=== PATIENT | female | born 1950 | race African-American/Black ===

== ENCOUNTER 2018-12-18 14:36 | Inpatient (IN) | payer MEDICAID ==
[~2018-12-18] VITALS: Ht 157.5 cm; Wt 54.9 kg
[2018-12-18] MEDS ORDERED: SODIUM CHLORIDE 0.9% 1000ML BAG (SEPSIS BOLUS) IV ONE (15:00)
[2018-12-18 15:50] LABS: BASOPHILS % 0.7 % (0.0-2.0); EOSINOPHILS % 0.6 % (0.0-5.0); HEMATOCRIT. 35.5 % (36.0-48.0); HEMOGLOBIN. 11.5 g/dL (12.0-16.0); LYMPHOCYTES % 13.4 % (20.0-50.0); MEAN CORPUSCULAR HEMOGLOBIN 25.7 pg (28.0-32.0); MEAN CORPUSCULAR VOLUME 79.4 fL (81.0-99.0); MEAN PLATELET VOLUME 7.7 fl (7.4-10.4); MONOCYTES % 6.6 % (2.0-8.0); NEUTROPHILS % 78.7 % (40.0-76.0); PLATELET 286 x1000/uL (130-400); RED BLOOD CELL COUNT 4.47 mill/uL (4.2-5.4); RED CELL DISTRIBUTION WIDTH 15.1 % (11.6-14.6)
[2018-12-18 15:57] LABS: CHLORIDE 108 mEq/L (98-107)
[2018-12-18 16:02] LABS: ETHANOL BLOOD < 10 mg/dL
[2018-12-18] MEDS ORDERED: LEVOFLOXACIN 750MG PREMIX 150 ML IV ONE (16:45)
[2018-12-18] MEDS ORDERED: ASPIRIN 81MG TABLET PO ONE (17:00)
[2018-12-18 17:18] LABS: CLARITY URINE CLEAR (CLEAR); COLOR URINE YELLOW (YELLOW); KETONES URINE NEGATIVE (NEGATIVE); LEUKOCYTE ESTERASE URINE NEGATIVE (NEGATIVE); NITRITE URINE NEGATIVE (NEGATIVE); OCCULT BLOOD URINE NEGATIVE (NEGATIVE); PH URINE 5.5 (4.5-8.0); PROTEIN URINE NEGATIVE (NEGATIVE); UROBILINOGEN URINE 0.2 E.U./dL (0.2-1.0)
[2018-12-18 17:29] LABS: *AMPHETAMINES SCREEN URINE NEGATIVE (NEGATIVE); *BARBITURATES SCREEN URINE NEGATIVE (NEGATIVE); *BENZODIAZEPINES SCREEN URINE NEGATIVE (NEGATIVE); *COCAINE SCREEN URINE NEGATIVE (NEGATIVE); METHADONE URINE SCREEN NEGATIVE (NEGATIVE); OPIATES URINE SCREEN NEGATIVE (NEGATIVE)
[2018-12-18 17:30] LABS: CANNABINOID URINE SCREEN NEGATIVE (NEGATIVE); PHENCYCLIDINE URINE SCREEN NEGATIVE (NEGATIVE)
[2018-12-18] MEDS ORDERED: MAGNESIUM/ALUMINUM HYDROXIDE/SIMETHICONE 30ML UDC PO PRN (19:45)
[2018-12-18] MEDS ORDERED: CLONIDINE 0.1MG TABLET PO PRN (19:45)
[2018-12-18] MEDS ORDERED: DIPHENHYDRAMINE 50MG/ML VIAL IV PRN (19:45)
[2018-12-18] MEDS ORDERED: IPRATROPIUM/ALBUTEROL 0.5-3(2.5)MG/3ML NEB INH PRN (19:45)
[2018-12-18] MEDS ORDERED: ACETAMINOPHEN 325MG TABLET PO PRN (19:45)
[2018-12-18] MEDS ORDERED: GUAIFENESIN 200MG/10ML SUGAR FREE UDC PO PRN (19:45)
[2018-12-18] MEDS ORDERED: HYDRALAZINE 20MG/ML VIAL IV PRN (19:45)
[2018-12-18] MEDS ORDERED: DOCUSATE SODIUM 100MG CAPSULE PO PRN (19:45)
[2018-12-18] MEDS ORDERED: ONDANSETRON HCL 4MG/2ML INJ IV PRN (19:45)
[2018-12-18] MEDS ORDERED: LORAZEPAM 2MG/ML CPJ IV PRN (19:45)
[2018-12-18] MEDS ORDERED: HYDROCODONE/ACETAMINOPHEN 10/325MG TABLET PO PRN (20:30)
[2018-12-18 20:35] VITALS: BP 117/83
[2018-12-18] MEDS ORDERED: ENOXAPARIN 30MG/0.3ML SYR SUBCUT SCH (20:45)
[2018-12-18] MEDS ORDERED: NA PHOS,M-B/NA PHOS,DI-BA ENEMA 118ML PR PRN (21:00)
[2018-12-18] MEDS ORDERED: HYDROMORPHONE HCL/PF 2MG/ML CPJ IV PRN (21:00)
[2018-12-18] MEDS: SODIUM CHLORIDE 0.45% 1,000 ML IV SCH (23:16)
[2018-12-18] MEDS: SODIUM CHLORIDE 0.9% INJ 3ML FLUSH IVF SCH (23:17)
[2018-12-19] VITALS: BP 105/61
[2018-12-19] MEDS ORDERED: ASPI-1079 PO (00:07)
[2018-12-19 00:31] LABS: CREATINE KINASE 62 IU/L (26-192)
[2018-12-19 00:32] LABS: CREATINE KINASE MB FRACTION < 1.0 ng/mL (0.5-3.6)
[2018-12-19 04:00] VITALS: BP 135/78
[2018-12-19 07:12] LABS: BASOPHILS % 0.6 % (0.0-2.0); EOSINOPHILS % 1.9 % (0.0-5.0); HEMATOCRIT. 32.4 % (36.0-48.0); HEMOGLOBIN. 10.6 g/dL (12.0-16.0); LYMPHOCYTES % 24.1 % (20.0-50.0); MEAN CORPUSCULAR HEMOGLOBIN 25.7 pg (28.0-32.0); MEAN CORPUSCULAR VOLUME 78.4 fL (81.0-99.0); MEAN PLATELET VOLUME 7.5 fl (7.4-10.4); MONOCYTES % 10.1 % (2.0-8.0); NEUTROPHILS % 63.3 % (40.0-76.0); PLATELET 298 x1000/uL (130-400); RED BLOOD CELL COUNT 4.14 mill/uL (4.2-5.4); RED CELL DISTRIBUTION WIDTH 15.1 % (11.6-14.6)
[2018-12-19 07:49] LABS: CHLORIDE 111 mEq/L (98-107)
[2018-12-19 08:00] VITALS: BP 117/76
[2018-12-19 08:00] LABS: CREATINE KINASE MB FRACTION < 1.0 ng/mL (0.5-3.6)
[2018-12-19 08:01] LABS: LDL CHOLESTEROL 68 mg/dL (5-100)
[2018-12-19 08:02] LABS: CREATINE KINASE 54 IU/L (26-192); HDL CHOLESTEROL 83 mg/dL (40-59)
[2018-12-19] MEDS: ASPIRIN 81MG EC TABLET PO SCH (08:15)
[2018-12-19] MEDS: SODIUM CHLORIDE 0.9% INJ 3ML FLUSH IVF SCH ×3 (08:15→21:34)
[2018-12-19 12:00] VITALS: BP 110/71
[2018-12-19] MEDS: SODIUM CHLORIDE 0.45% 1,000 ML IV SCH (13:20)
[2018-12-19 16:00] VITALS: BP 123/67
[2018-12-19] MEDS ORDERED: LEVOFLOXACIN 500MG PREMIX 100 ML IV SCH ×2 (17:00→17:30)
[2018-12-19 20:00] VITALS: BP 105/59
[2018-12-19] MEDS ORDERED: ENOXAPARIN 40MG/0.4ML SYR SUBCUT SCH (21:00)
[2018-12-20] VITALS: BP 129/62
[2018-12-20 04:00] VITALS: BP 110/54
[2018-12-20] MEDS: SODIUM CHLORIDE 0.45% 1,000 ML IV SCH (05:59)
[2018-12-20] MEDS: SODIUM CHLORIDE 0.9% INJ 3ML FLUSH IVF SCH (06:00)
[2018-12-20 07:09] LABS: CHLORIDE 109 mEq/L (98-107)
[2018-12-20 07:43] LABS: BASOPHILS % 0.6 % (0.0-2.0); EOSINOPHILS % 2.6 % (0.0-5.0); HEMATOCRIT. 34.8 % (36.0-48.0); HEMOGLOBIN. 11.3 g/dL (12.0-16.0); LYMPHOCYTES % 26.3 % (20.0-50.0); MEAN CORPUSCULAR HEMOGLOBIN 25.4 pg (28.0-32.0); MEAN CORPUSCULAR VOLUME 78.6 fL (81.0-99.0); MEAN PLATELET VOLUME 8.4 fl (7.4-10.4); MONOCYTES % 9.7 % (2.0-8.0); NEUTROPHILS % 60.8 % (40.0-76.0); PLATELET 290 x1000/uL (130-400); RED BLOOD CELL COUNT 4.43 mill/uL (4.2-5.4); RED CELL DISTRIBUTION WIDTH 14.6 % (11.6-14.6)
[2018-12-20 08:00] VITALS: BP 118/65
[2018-12-20] MEDS: ASPIRIN 81MG EC TABLET PO SCH (08:39)
[2018-12-20 11:50] VITALS: BP 104/60
== END 2018-12-20 13:38 | disposition home or self-care (01) | DRG 48 ==
LOC: ER 14:36 → 8WST 16:54 → EDBEDREQ 17:08 → ENRESERV 19:29
PROVIDERS: ADMIT Internal Medicine; ATTEND Internal Medicine
DX: G90.8 Other disorders of autonomic nervous system (principal); E87.2 Acidosis; I95.9 Hypotension, unspecified; E87.8 Other disorders of electrolyte and fluid balance, not elsewhere classified; R00.1 Bradycardia, unspecified; D63.8 Anemia in other chronic diseases classified elsewhere; I11.9 Hypertensive heart disease without heart failure; E83.42 Hypomagnesemia; E44.1 Mild protein-calorie malnutrition; Z90.710 Acquired absence of both cervix and uterus; Z79.82 Long term (current) use of aspirin; M19.90 Unspecified osteoarthritis, unspecified site; F41.9 Anxiety disorder, unspecified; M85.80 Other specified disorders of bone density and structure, unspecified site; Z68.22 Body mass index [BMI] 22.0-22.9, adult
CPT/HCPCS: 36415; 71045; 80048; 80061; 80305; 80320; 81003; 82550; 82553; 83605; 83735; 84145; 84439; 84443; 84484; 93005; 93306; 93880; 96374; 99291; J1650; J1956; J7030; G0480

== ENCOUNTER 2019-03-17 08:26 | Emergency (ER) | payer MEDICAID ==
[~2019-03-17] VITALS: Ht 162.6 cm; Wt 50.0 kg
[~2019-03-17 08:26] MED LIST: ASPI-1079 PO
[2019-03-17] MEDS ORDERED: SODIUM CHLORIDE 0.9% 1,000 ML IV ONE (08:35)
[2019-03-17 09:17] LABS: BASOPHILS % 1.1 % (0.0-2.0); EOSINOPHILS % 3.2 % (0.0-5.0); HEMATOCRIT. 37.6 % (36.0-48.0); HEMOGLOBIN. 12.2 g/dL (12.0-16.0); LYMPHOCYTES % 21.3 % (20.0-50.0); MEAN CORPUSCULAR HEMOGLOBIN 25.5 pg (28.0-32.0); MEAN CORPUSCULAR VOLUME 78.6 fL (81.0-99.0); MEAN PLATELET VOLUME 8.6 fl (7.4-10.4); MONOCYTES % 6.1 % (2.0-8.0); NEUTROPHILS % 68.3 % (40.0-76.0); PLATELET 254 x1000/uL (130-400); RED BLOOD CELL COUNT 4.79 mill/uL (4.2-5.4)
[2019-03-17 09:19] LABS: CHLORIDE 109 mEq/L (98-107)
[2019-03-17 10:40] LABS: CLARITY URINE CLEAR (CLEAR); COLOR URINE YELLOW (YELLOW); KETONES URINE NEGATIVE (NEGATIVE); LEUKOCYTE ESTERASE URINE NEGATIVE (NEGATIVE); NITRITE URINE NEGATIVE (NEGATIVE); OCCULT BLOOD URINE NEGATIVE (NEGATIVE); PROTEIN URINE NEGATIVE (NEGATIVE); SPECIFIC GRAVITY URINE 1.005 (1.005-1.030); UROBILINOGEN URINE 0.2 E.U./dL (0.2-1.0)
[2019-03-17 11:09] VITALS: BP 133/71
== END 2019-03-17 11:12 | disposition home or self-care (01) ==
LOC: ER 08:26
DX: R55 Syncope and collapse (principal)
CPT/HCPCS: 36415; 71045; 80053; 81003; 85025; 93005; 96360; 99284; J7030; Z7610

== ENCOUNTER 2019-04-12 07:57 | Inpatient (IN) | payer MEDICAID ==
[~2019-04-12] VITALS: Ht 157.5 cm; Wt 57.6 kg
[2019-04-12] MEDS ORDERED: MIRT30TA PO (08:04)
[2019-04-12] MEDS ORDERED: OLAN10TA3 PO (08:04)
[2019-04-12] MEDS ORDERED: EFEX1 PO (08:04)
[2019-04-12] MEDS ORDERED: SODIUM CHLORIDE 0.9% 1000ML BAG (SEPSIS BOLUS) IV ONE (08:30)
[2019-04-12 10:19] LABS: BASOPHILS % 0.5 % (0.0-2.0); EOSINOPHILS % 1.7 % (0.0-5.0); HEMATOCRIT. 38.5 % (36.0-48.0); LYMPHOCYTES % 18.7 % (20.0-50.0); MEAN CORPUSCULAR HEMOGLOBIN 25.2 pg (28.0-32.0); MEAN PLATELET VOLUME 8.4 fl (7.4-10.4); MONOCYTES % 9.6 % (2.0-8.0); NEUTROPHILS % 69.5 % (40.0-76.0); PLATELET 226 x1000/uL (130-400); RED BLOOD CELL COUNT 4.76 mill/uL (4.2-5.4); RED CELL DISTRIBUTION WIDTH 16.5 % (11.6-14.6)
[2019-04-12 10:27] LABS: CHLORIDE 113 mEq/L (98-107)
[2019-04-12] MEDS ORDERED: VANCOMYCIN 1 G PREMIX 200 ML IV ONE (10:45)
[2019-04-12] MEDS ORDERED: PIPERACILLIN/TAZ 3.375G PREMIX 50 ML IV ONE (10:45)
[2019-04-12 11:09] LABS: INR 1.4; PROTHROMBIN TIME 14.3 sec (9.6-11.0)
[2019-04-12 11:14] LABS: CLARITY URINE CLEAR (CLEAR); COLOR URINE YELLOW (YELLOW); KETONES URINE NEGATIVE (NEGATIVE); LEUKOCYTE ESTERASE URINE NEGATIVE (NEGATIVE); NITRITE URINE NEGATIVE (NEGATIVE); OCCULT BLOOD URINE NEGATIVE (NEGATIVE); PROTEIN URINE NEGATIVE (NEGATIVE); SPECIFIC GRAVITY URINE 1.012 (1.005-1.030); UROBILINOGEN URINE 0.2 E.U./dL (0.2-1.0)
[2019-04-12] MEDS ORDERED: ONDANSETRON HCL 4MG/2ML INJ IV PRN (17:15)
[2019-04-12] MEDS ORDERED: ACETAMINOPHEN 325MG TABLET PO PRN (17:15)
[2019-04-12 22:59] VITALS: BP 116/60
[2019-04-12] MEDS: SODIUM CHLORIDE 0.9% 1,000 ML IV SCH (23:50)
[2019-04-13] VITALS (10 sets, daily range): BP systolic 112–145; BP diastolic 61–87
[2019-04-13 01:36] LABS: CREATINE KINASE 59 IU/L (26-192)
[2019-04-13 01:37] LABS: CREATINE KINASE MB FRACTION 1.2 ng/mL (0.5-3.6)
[2019-04-13 07:05] LABS: BASOPHILS % 0.7 % (0.0-2.0); EOSINOPHILS % 5.1 % (0.0-5.0); HEMOGLOBIN. 12.7 g/dL (12.0-16.0); LYMPHOCYTES % 21.9 % (20.0-50.0); MEAN CORPUSCULAR HEMOGLOBIN 25.3 pg (28.0-32.0); MEAN CORPUSCULAR VOLUME 79.7 fL (81.0-99.0); MEAN PLATELET VOLUME 8.7 fl (7.4-10.4); MONOCYTES % 8.8 % (2.0-8.0); NEUTROPHILS % 63.5 % (40.0-76.0); PLATELET 239 x1000/uL (130-400); RED BLOOD CELL COUNT 5.02 mill/uL (4.2-5.4); RED CELL DISTRIBUTION WIDTH 16.6 % (11.6-14.6)
[2019-04-13 07:28] LABS: CHLORIDE 114 mEq/L (98-107)
[2019-04-13 07:50] LABS: CREATINE KINASE 58 IU/L (26-192)
[2019-04-13 07:53] LABS: CREATINE KINASE MB FRACTION 1.2 ng/mL (0.5-3.6)
[2019-04-13] MEDS: SODIUM CHLORIDE 0.9% 1,000 ML IV SCH (12:31)
== END 2019-04-13 17:50 | disposition home or self-care (01) | DRG 720 ==
LOC: ER 07:57 → EDBEDREQ 12:12 → EDBEDREQTM 12:12 → 5EST 12:15 → ENRESERV 21:00 → 5EST 04-13 13:46
PROVIDERS: ADMIT Internal Medicine; ATTEND Internal Medicine
DX: A41.9 Sepsis, unspecified organism (principal); E87.2 Acidosis; I95.2 Hypotension due to drugs; F03.90 Unspecified dementia, unspecified severity, without behavioral disturbance, psychotic disturbance, mood disturbance, and anxiety; T43.595A Adverse effect of other antipsychotics and neuroleptics, initial encounter; I10 Essential (primary) hypertension; J98.11 Atelectasis; Y92.89 Other specified places as the place of occurrence of the external cause; Z90.710 Acquired absence of both cervix and uterus
CPT/HCPCS: 36415; 71045; 80048; 81003; 82550; 82553; 83605; 84145; 84484; 93005; 93970; 96365; 97162; 99291; J2543; J3370; J7030

== ENCOUNTER 2019-05-02 07:56 | Inpatient (IN) | payer MEDICAID ==
[~2019-05-02] VITALS: Ht 165.1 cm; Wt 54.4 kg
[~2019-05-02 07:56] MED LIST changes: +EFEX1 PO; +MIRT30TA PO
[2019-05-02 09:45] LABS: EOSINOPHILS % 1.7 % (0.0-5.0); HEMATOCRIT. 38.2 % (36.0-48.0); HEMOGLOBIN. 12.4 g/dL (12.0-16.0); LYMPHOCYTES % 16.7 % (20.0-50.0); MEAN CORPUSCULAR HEMOGLOBIN 25.5 pg (28.0-32.0); MEAN CORPUSCULAR VOLUME 78.6 fL (81.0-99.0); MONOCYTES % 7.8 % (2.0-8.0); NEUTROPHILS % 72.8 % (40.0-76.0); PLATELET 245 x1000/uL (130-400); RED BLOOD CELL COUNT 4.87 mill/uL (4.2-5.4); RED CELL DISTRIBUTION WIDTH 15.9 % (11.6-14.6)
[2019-05-02 09:54] LABS: CHLORIDE 112 mEq/L (98-107)
[2019-05-02 21:40] VITALS: BP 122/68
[2019-05-03] VITALS: BP 136/59
[2019-05-03] MEDS: SODIUM CHLORIDE 0.9% 1,000 ML IV SCH ×2 (01:48→12:58)
[2019-05-03 04:00] VITALS: BP 119/62
[2019-05-03 08:00] VITALS: BP 124/71
[2019-05-03 08:25] LABS: BASOPHILS % 0.7 % (0.0-2.0); EOSINOPHILS % 3.1 % (0.0-5.0); HEMATOCRIT. 42.3 % (36.0-48.0); HEMOGLOBIN. 13.7 g/dL (12.0-16.0); LYMPHOCYTES % 26.5 % (20.0-50.0); MEAN CORPUSCULAR HEMOGLOBIN 25.6 pg (28.0-32.0); MEAN CORPUSCULAR VOLUME 78.8 fL (81.0-99.0); MEAN PLATELET VOLUME 8.7 fl (7.4-10.4); MONOCYTES % 7.7 % (2.0-8.0); PLATELET 283 x1000/uL (130-400); RED BLOOD CELL COUNT 5.36 mill/uL (4.2-5.4); RED CELL DISTRIBUTION WIDTH 16.1 % (11.6-14.6)
[2019-05-03 08:30] LABS: CHLORIDE 110 mEq/L (98-107)
[2019-05-03] MEDS: ASPIRIN 81MG TABLET PO SCH (08:32)
[2019-05-03] MEDS: VENLAFAXINE HCL 50MG TABLET PO SCH (08:33)
[2019-05-03] MEDS: ENOXAPARIN 40MG/0.4ML SYR SUBCUT SCH (08:33)
[2019-05-03 12:21] VITALS: BP_SYST 105; BP_SYST 123; BP_DIAS 65; BP_DIAS 69
[2019-05-03 12:33] LABS: CREATINE KINASE 67 IU/L (26-192)
[2019-05-03 12:36] LABS: CREATINE KINASE MB FRACTION < 1.0 ng/mL (0.5-3.6)
[2019-05-03 16:04] VITALS: BP 111/63
[2019-05-03 16:47] LABS: CREATINE KINASE 56 IU/L (26-192)
[2019-05-03 16:48] LABS: CREATINE KINASE MB FRACTION < 1.0 ng/mL (0.5-3.6)
[2019-05-03 20:00] VITALS: BP 116/64
[2019-05-03] MEDS: MIRTAZAPINE 15MG TABLET PO SCH (21:31)
[2019-05-03 22:40] LABS: CREATINE KINASE 60 IU/L (26-192)
[2019-05-03 22:41] LABS: CREATINE KINASE MB FRACTION 1.1 ng/mL (0.5-3.6)
[2019-05-04] VITALS: BP 112/64
[2019-05-04 04:00] VITALS: BP_SYST 100; BP_SYST 104; BP_SYST 112; BP_DIAS 60; BP_DIAS 67; BP_DIAS 68
[2019-05-04] MEDS: SODIUM CHLORIDE 0.9% 1,000 ML IV SCH ×2 (07:04→16:31)
[2019-05-04 08:00] VITALS: BP 110/66
[2019-05-04 09:16] LABS: BASOPHILS % 0.9 % (0.0-2.0); HEMATOCRIT. 36.4 % (36.0-48.0); HEMOGLOBIN. 11.9 g/dL (12.0-16.0); LYMPHOCYTES % 20.2 % (20.0-50.0); MEAN CORPUSCULAR HEMOGLOBIN 25.5 pg (28.0-32.0); MEAN CORPUSCULAR VOLUME 77.8 fL (81.0-99.0); MEAN PLATELET VOLUME 8.5 fl (7.4-10.4); MONOCYTES % 7.2 % (2.0-8.0); NEUTROPHILS % 69.7 % (40.0-76.0); PLATELET 254 x1000/uL (130-400); RED BLOOD CELL COUNT 4.68 mill/uL (4.2-5.4); RED CELL DISTRIBUTION WIDTH 15.6 % (11.6-14.6)
[2019-05-04] MEDS: ASPIRIN 81MG TABLET PO SCH (09:20)
[2019-05-04] MEDS: VENLAFAXINE HCL 50MG TABLET PO SCH (09:20)
[2019-05-04] MEDS: ENOXAPARIN 40MG/0.4ML SYR SUBCUT SCH (09:21)
[2019-05-04 09:23] LABS: CHLORIDE 113 mEq/L (98-107)
[2019-05-04 09:34] LABS: LDL CHOLESTEROL 82 mg/dL (5-100)
[2019-05-04 09:35] LABS: HDL CHOLESTEROL 75 mg/dL (40-59)
[2019-05-04 12:00] VITALS: BP 99/62
[2019-05-04 16:00] VITALS: BP_SYST 114; BP_SYST 133; BP_DIAS 65; BP_DIAS 69
[2019-05-04 20:00] VITALS: BP 122/69
[2019-05-04] MEDS: MIRTAZAPINE 15MG TABLET PO SCH (21:31)
[2019-05-05] VITALS: BP 103/63
[2019-05-05 01:28] LABS: *AMPHETAMINES SCREEN URINE NEGATIVE (NEGATIVE); *BARBITURATES SCREEN URINE NEGATIVE (NEGATIVE)
[2019-05-05 01:29] LABS: *BENZODIAZEPINES SCREEN URINE NEGATIVE (NEGATIVE); *COCAINE SCREEN URINE NEGATIVE (NEGATIVE); METHADONE URINE SCREEN NEGATIVE (NEGATIVE); OPIATES URINE SCREEN NEGATIVE (NEGATIVE); PHENCYCLIDINE URINE SCREEN NEGATIVE (NEGATIVE)
[2019-05-05 01:30] LABS: CANNABINOID URINE SCREEN NEGATIVE (NEGATIVE)
[2019-05-05 04:00] VITALS: BP 120/68
[2019-05-05] MEDS: SODIUM CHLORIDE 0.9% 1,000 ML IV SCH ×2 (05:29→18:17)
[2019-05-05 08:00] VITALS: BP 137/68
[2019-05-05 08:08] LABS: BASOPHILS % 0.7 % (0.0-2.0); EOSINOPHILS % 3.7 % (0.0-5.0); HEMATOCRIT. 35.4 % (36.0-48.0); HEMOGLOBIN. 11.6 g/dL (12.0-16.0); MEAN CORPUSCULAR HEMOGLOBIN 25.7 pg (28.0-32.0); MEAN CORPUSCULAR VOLUME 78.3 fL (81.0-99.0); MEAN PLATELET VOLUME 8.5 fl (7.4-10.4); MONOCYTES % 9.1 % (2.0-8.0); NEUTROPHILS % 60.5 % (40.0-76.0); PLATELET 254 x1000/uL (130-400); RED BLOOD CELL COUNT 4.52 mill/uL (4.2-5.4); RED CELL DISTRIBUTION WIDTH 15.9 % (11.6-14.6)
[2019-05-05] MEDS: ENOXAPARIN 40MG/0.4ML SYR SUBCUT SCH (09:35)
[2019-05-05] MEDS: ASPIRIN 81MG TABLET PO SCH (09:35)
[2019-05-05] MEDS: VENLAFAXINE HCL 50MG TABLET PO SCH (09:35)
[2019-05-05 09:48] LABS: CHLORIDE 113 mEq/L (98-107)
[2019-05-05 12:00] VITALS: BP_SYST 109; BP_SYST 112; BP_DIAS 54; BP_DIAS 64
[2019-05-05] MEDS ORDERED: REGADENOSON 0.4 MG/5 ML IV ONE (14:15)
[2019-05-05 16:00] VITALS: BP 121/67
[2019-05-05 20:00] VITALS: BP_SYST 110; BP_SYST 95; BP_DIAS 55; BP_DIAS 56
[2019-05-05] MEDS: MIRTAZAPINE 15MG TABLET PO SCH (21:34)
[2019-05-06] VITALS: BP 111/55
[2019-05-06 04:00] VITALS: BP 112/62
[2019-05-06 08:09] VITALS: BP 136/73
[2019-05-06] MEDS: VENLAFAXINE HCL 50MG TABLET PO SCH (08:42)
[2019-05-06] MEDS: ASPIRIN 81MG TABLET PO SCH (08:42)
[2019-05-06] MEDS: SODIUM CHLORIDE 0.9% 1,000 ML IV SCH (08:47)
[2019-05-06] MEDS: ENOXAPARIN 40MG/0.4ML SYR SUBCUT SCH (08:47)
[2019-05-06] MEDS ORDERED: REGADENOSON 0.4 MG/5 ML IV ONE (13:15)
[2019-05-06 16:11] VITALS: BP_SYST 122; BP_SYST 88; BP_SYST 99; BP_DIAS 53; BP_DIAS 56; BP_DIAS 58
[2019-05-06 17:17] VITALS: BP 99/53
== END 2019-05-06 18:18 | disposition home or self-care (01) | DRG 48 ==
LOC: ER 07:56 → 7WST 12:03 → ENRESERV 20:07
PROVIDERS: ADMIT Internal Medicine; ATTEND Internal Medicine
DX: G90.8 Other disorders of autonomic nervous system (principal); E46 Unspecified protein-calorie malnutrition; R00.1 Bradycardia, unspecified; I10 Essential (primary) hypertension; F32.9 Major depressive disorder, single episode, unspecified; Z79.82 Long term (current) use of aspirin; Z90.710 Acquired absence of both cervix and uterus; Z79.899 Other long term (current) drug therapy; Z68.20 Body mass index [BMI] 20.0-20.9, adult
CPT/HCPCS: 36415; 71045; 78452; 80048; 80053; 80061; 80305; 80320; 82550; 82553; 83735; 83880; 84443; 84484; 85025; 85379; 93005; 93017; 93306; 93880; 96372; 97116; 97162; 97165; 99285; A9500; C1893; J1650; J2785; J7030; G0480